=== PATIENT | male | born 1995 | race Hispanic/Latino ===

== ENCOUNTER 2022-02-28 08:01 | Emergency (ER) | payer SELFPAY ==
[2022-02-28] MEDS ORDERED: ZITHROMAX250 MG PO (08:39)
[2022-02-28] MEDS ORDERED: BROMPHENIR-PSE118 ML PO (08:40)
== END 2022-02-28 08:42 | disposition home or self-care (01) ==
LOC: FSED 08:08
DX: R05.9 Cough, unspecified (principal); J20.9 Acute bronchitis, unspecified; I10 Essential (primary) hypertension
CPT/HCPCS: 83518; 87400; 99282